=== PATIENT | female | born 1965 | race Caucasian/White ===

== ENCOUNTER 2024-08-05 09:59 | Outpatient (RCR) | payer OTHER, SELFPAY ==
--- NOTE | 2024-08-05 10:48 | PTOPEVAL1 ---
Assessment and note entered by Wilmer Scott Evaluation Information Assessment Status Evaluation Diagnosis bilateral biceps tendonitis ICD-10 Condition Codes (PT) M25.511,M25.512 Onset 11/08/23 Subjective Information Pt. reports that she was working at [employer] when she developed pain. She reports that pain is in both shoulder, however the right is worse than the left. She is right hand dominant. She describes pain in the front of the shoulder on both sides and pain is increased with reaching away from the body. She states that she cannot sleep due to pain, and cannot lay on the right or left shoulder. She states that she has trouble cleaning her home and doing light household duties due to pain in the shoulders. She reports that her goal is to reduce her shoulder pain. Reported Pain Level Pain Score 8,5: Self Report Assessment PT Clinical Summary Pt. is a 59 year old female who enters the clinic with bilateral shoulder pain. She presents with indication of bilateral shoulder impingement, worse on the right than the left. She currently presents with impaired postural awareness, impaired shoulder mobility, impaired shoulder strength and pain. Continued skilled PT is indicated in order to improve these areas to allow for improved comfort with IADL performance. Plan of Care Interventions Electrical Stimulation,Hot Pack/Cold Pack,Manual Therapy,Neuro Re-education,Patient/Caregiver Educati,Therapeutic Activities,Therapeutic Exercise PT Services Indicated Yes Treatment Frequency and 2x/week x 10 visits Duration These treatments will address the objective and functional deficits as defined above. The patient will be advanced safely and appropriately in order for the patient to progress towards his/her prior level of function. Additional exercises will be introduced and as well as a comprehensive home exercise program upon discharge, if needed, ?to ensure carryover of functional gains achieved in the clinic. This treatment plan has been reviewed and agreement upon by the patient.
--- NOTE | 2024-08-05 10:49 | OPREHPOC ---
Outpatient Therapy Plan of Care This is a Multidisciplinary Plan of Care that may contain components documented by all disciplines (PT, OT, and ST.) PT Problem 1 PT Problem #1 Knowledge Deficit PT Goal 1 Goal / Goal Update Pt. will be independent with a HEP addressing postural awareness Target Visit 2 PT Problem 2 PT Problem #2 Impaired Range of Motion PT Goal 1 Goal / Goal Update Pt. will demonstrate 160 degrees active bilateral shoulder flexion ROM against gravity Target Visit 10 PT Problem 3 PT Problem #3 Impaired Strength PT Goal 1 Goal / Goal Update Pt. will present with 5/5 bilateral u.e. strength in all muscle groups Pt. will be able to lift 10# object overhead with the right and left u.e. for 10 reps without pain increase. Target Visit 10 PT Problem 4 PT Problem #4 Impaired Functional Mobil PT Goal 1 Goal / Goal Update Pt. will be able to sleep through the night without pain disturbance Target Visit 10
--- NOTE | 2024-09-25 16:04 | OPREHPOC ---
Outpatient Therapy Plan of Care This is a Multidisciplinary Plan of Care that may contain components documented by all disciplines (PT, OT, and ST.) PT Problem 1 PT Problem #1 Knowledge Deficit PT Goal 1 Goal / Goal Update Pt. will be independent with a HEP addressing postural awareness Target Visit 2 Progress Met PT Problem 2 PT Problem #2 Impaired Range of Motion PT Goal 1 Goal / Goal Update Pt. will demonstrate 160 degrees active bilateral shoulder flexion ROM against gravity Target Visit 14 Progress Not Met PT Problem 3 PT Problem #3 Impaired Strength PT Goal 1 Goal / Goal Update Pt. will present with 5/5 bilateral u.e. strength in all muscle groups Pt. will be able to lift 10# object overhead with the right and left u.e. for 10 reps without pain increase. Target Visit 14 Progress Not Met PT Problem 4 PT Problem #4 Impaired Functional Mobility PT Goal 1 Goal / Goal Update Pt. will be able to sleep through the night without pain disturbance Target Visit 14 Progress Not Met
--- NOTE | 2024-09-25 16:04 | PTOPPROG ---
Assessment and note entered by JT File, PT Evaluation Information Assessment Status Re-evaluation Diagnosis bilateral biceps tendonitis ICD-10 Condition Codes (PT) Pain in right shoulder M25.511,Pain in left shoulder M25.512 Onset 11/08/23 Subjective Information patient reports she continues to have pain in the bilateral shoulders, and tightness with reaching overhead. she reports it is still difficult and tight to reach overhead and behind neck and back. Assessment PT Clinical Summary mrs. kowalski presents to skilled PT services for her 10th skilled PT visit. she presents with continued pain in the bilateral shoulders, weakness, and deficits in functional lifting/ reaching. she has met HEP goal as of this date, but has yet to meet any other goals for skilled PT . she was educated in the benefits of continued skilled PT with the progression of exercises, and to consider the addition of dry needling to the bilateral shoulders. Plan of Care Interventions Electrical Stimulation,Hot Pack/Cold Pack,Manual Therapy,Neuro Re-education,Patient/Caregiver Education,Therapeutic Activities,Therapeutic Exercise PT Services Indicated Yes Treatment Frequency and continue skilled PT 2x weekly for 4 more visits Duration These treatments will address the objective and functional deficits as defined above. The patient will be advanced safely and appropriately in order for the patient to progress towards his/her prior level of function. Additional exercises will be introduced and as well as a comprehensive home exercise program upon discharge, if needed, ?to ensure carryover of functional gains achieved in the clinic. This treatment plan has been reviewed and agreement upon by the patient.
--- NOTE | 2024-09-29 15:21 | PCPTNOTE ---
Cancelled session. Have not received authorization yet.
--- NOTE | 2024-10-03 15:20 | PCPTNOTE ---
Cancelled session. Pt reports she was not informed that authorization had been received.
--- NOTE | 2024-10-10 16:28 | OPREHPOC ---
Outpatient Therapy Plan of Care This is a Multidisciplinary Plan of Care that may contain components documented by all disciplines (PT, OT, and ST.) PT Problem 1 PT Problem #1 Knowledge Deficit PT Goal 1 Goal / Goal Update Pt. will be independent with a HEP addressing postural awareness Target Visit 2 Progress Met PT Problem 2 PT Problem #2 Impaired Range of Motion PT Goal 1 Goal / Goal Update Pt. will demonstrate 160 degrees active bilateral shoulder flexion ROM against gravity Target Visit 18 Progress Partially Met PT Goal 2 Goal / Goal Update progressing R, met for L PT Problem 3 PT Problem #3 Impaired Strength PT Goal 1 Goal / Goal Update Pt. will present with 5/5 bilateral u.e. strength in all muscle groups Pt. will be able to lift 10# object overhead with the right and left u.e. for 10 reps without pain increase. met for reps, not for pain. Target Visit 18 Progress Not Met PT Goal 2 Goal / Goal Update progressing PT Problem 4 PT Problem #4 Impaired Functional Mobility PT Goal 1 Goal / Goal Update Pt. will be able to sleep through the night without pain disturbance. most nights Target Visit 18 Progress Partially Met PT Goal 2 Goal / Goal Update progressing
--- NOTE | 2024-10-10 16:28 | PTOPREEVAL ---
Assessment and note entered by JT File, PT Evaluation Information Assessment Status Re-evaluation Diagnosis bilateral biceps tendonitis ICD-10 Condition Codes (PT) Pain in right shoulder M25.511,Pain in left shoulder M25.512 Onset 11/08/23 Subjective Information patient reports she is better, but we still have work today. she reports she still has issues with reaching behind her back, and pushing up from a chair. she reports she will get pain in the back of the R shoulder that is sharp at first and then throbs/hurts. she reports the L shoulder is not really an issue any more. she reports she only has soreness from time to time when she feels she has used it too much to overcome the issues with the R shoulder. patient reports she has to move her R arm slowly as it will lock up if she moves it too fast. Reported Pain Level Pain Score 2,5: Self Report Assessment PT Clinical Summary mrs. kowalski is a 59 yo woman who presents to her 14th skilled PT treatment. she presents with decreased pain and symptoms in the L shoulder, but still pain and limitations in the R shoulder. she is reduced in R shoulder active flexion, bilateral shoulder strength (worse on the R), and pain (worse on the R). she is also limited in movement speed due to locking of the R shoulder with quick movement. she would benefit from continued skilled PT as she has made improvements and progress towards all goals. Plan of Care Interventions Electrical Stimulation,Hot Pack/Cold Pack,Manual Therapy,Neuro Re-education,Patient/Caregiver Education,Therapeutic Activities,Therapeutic Exercise PT Services Indicated Yes Treatment Frequency and continue skilled PT 2x weekly for 4 more visits Duration These treatments will address the objective and functional deficits as defined above. The patient will be advanced safely and appropriately in order for the patient to progress towards his/her prior level of function. Additional exercises will be introduced and as well as a comprehensive home exercise program upon discharge, if needed, ?to ensure carryover of functional gains achieved in the clinic. This treatment plan has been reviewed and agreement upon by the patient.
--- NOTE | 2024-10-22 12:56 | OPREHPOC ---
Outpatient Therapy Plan of Care This is a Multidisciplinary Plan of Care that may contain components documented by all disciplines (PT, OT, and ST.) PT Problem 1 PT Problem #1 Knowledge Deficit PT Goal 1 Goal / Goal Update Pt. will be independent with a HEP addressing postural awareness Target Visit 2 Progress Met PT Problem 2 PT Problem #2 Impaired Range of Motion PT Goal 1 Goal / Goal Update Pt. will demonstrate 160 degrees active bilateral shoulder flexion ROM against gravity Target Visit 18 Progress Partially Met PT Goal 2 Goal / Goal Update . PT Problem 3 PT Problem #3 Impaired Strength PT Goal 1 Goal / Goal Update Pt. will present with 5/5 bilateral u.e. strength in all muscle groups Pt. will be able to lift 10# object overhead with the right and left u.e. for 10 reps without pain increase. met for reps, not for pain. Target Visit 18 Progress Not Met PT Goal 2 Goal / Goal Update . PT Problem 4 PT Problem #4 Impaired Functional Mobility PT Goal 1 Goal / Goal Update Pt. will be able to sleep through the night without pain disturbance. most nights Target Visit 18 Progress Partially Met PT Goal 2 Goal / Goal Update .
--- NOTE | 2024-10-22 12:56 | PTOPREEVAL ---
Assessment and note entered by JT File, PT Evaluation Information Assessment Status Re-evaluation Diagnosis bilateral biceps tendonitis ICD-10 Condition Codes (PT) Pain in right shoulder M25.511,Pain in left shoulder M25.512 Onset 11/08/23 Subjective Information patient reports shoulders are hurting more and locking up on her recently. she reports she is unaware of any activity or re-injury, and questions if the cold weather is causing her increased pain/symptoms. Reported Pain Level Pain Score 5,6: Self Report Assessment PT Clinical Summary mrs. kowalski presents to skilled PT for her 16th skilled PT visit today. she displays increased pain and locking sensation in the bilateral shoulders over the last week. she has had no recent re-injury. throughout her time in therapy, we have tried modalities to reduce pain, manual therapy to improve rom/reduce pain, exercise to improve rom and strength, and dry needling to reduce pain and improve tissue mobility. however, her pain and functional deficits continue to fluctuate up and down and has not been relieved. she would benefit from holding continued skilled PT at this time to follow up with MD for guidance into next steps, whether that be new meds/new injection/imaging. Plan of Care Interventions Electrical Stimulation,Hot Pack/Cold Pack,Manual Therapy,Neuro Re-education,Patient/Caregiver Education,Therapeutic Activities,Therapeutic Exercise PT Services Indicated Yes Treatment Frequency and hold PT at this time. follow up with MD and report Duration back. These treatments will address the objective and functional deficits as defined above. The patient will be advanced safely and appropriately in order for the patient to progress towards his/her prior level of function. Additional exercises will be introduced and as well as a comprehensive home exercise program upon discharge, if needed, ?to ensure carryover of functional gains achieved in the clinic. This treatment plan has been reviewed and agreement upon by the patient.
== END 2024-11-03 23:59 | disposition home or self-care (01) ==
LOC: CHSPT 09:59
PROVIDERS: Visit Provider Physician Assistant
DX: M75.21 Bicipital tendinitis, right shoulder (principal); M75.22 Bicipital tendinitis, left shoulder
CPT/HCPCS: 97014; 97110; 97140; 97161; G0283

== ENCOUNTER 2025-01-05 16:16 | Outpatient (RCR) | payer OTHER, SELFPAY ==
--- NOTE | 2025-01-05 18:04 | OPREHPOC ---
Outpatient Therapy Plan of Care This is a Multidisciplinary Plan of Care that may contain components documented by all disciplines (PT, OT, and ST.) PT Problem 1 PT Problem #1 Knowledge Deficit PT Goal 1 Goal / Goal Update Independent and compliant with HEP. Target Visit 2 PT Problem 2 PT Problem #2 Pain PT Goal 1 Goal / Goal Update Pt to report no more than 2/10 pain with activity. Target Visit 10 PT Problem 3 PT Problem #3 Impaired Strength PT Goal 1 Goal / Goal Update Pt to improve gross R UE strength to 5/5. Target Visit 10 PT Problem 4 PT Problem #4 Impaired Functional Mobility PT Goal 1 Goal / Goal Update Pt to be able to cut food for 15 minutes before onset of R shoulder pain. Pt to note 20% improvement in quick dash. Target Visit 10 PT Problem 5 PT Problem #5 Impaired Range of Motion PT Goal 1 Goal / Goal Update Pt to improve active R shoulder flexion to 160 degrees. Pt to improve active R shoulder abduction to 160 degrees. Pt to improve active functional IR to L3. Target Visit 10
--- NOTE | 2025-01-05 18:04 | PTOPEVAL1 ---
Assessment and note entered by Maia Ruelas, PT Evaluation Information Assessment Status Evaluation ICD-10 Condition Codes (PT) Pain in right shoulder M25.511,Pain in left shoulder M25.512 Other ICD-10 Condition Codes ( M75.81, M75.82, M75.21, M75.22 PT) Onset 11/08/23 Subjective Information Pt reports onset of bilateral shoulder pain in November of 2023. She states this pain was due to overuse at work lifting heavy boxes. She went to PT for this and is now back, reporting that her right shoulder is more painful than the left at this time. She states that she has now developed bicep tendinitis due to compensating for her shoulder. Her pain is sharp while moving/ exercising and then after she uses the arm it's a dull ache/throbbing. Pain is aggravated by lifting the arm up, reaching into her back pocket, cutting foods with a knife and scrubbing dishes. She currently has none to minimal pain in both shoulders at rest. She did receive a cortisone shot on Sunday. Reported Pain Level Pain Score 1,0: Self Report Assessment PT Clinical Summary Mrs. Hilliard is a 59 yo female who enters the clinic with bilateral shoulder pain (R>L) and bicipital tendonitis. She experiences a sharp pain with movement of the arm such as cutting food and reaching behind her back. She demonstrates weakness of the R shoulder compared to the L as well as impaired active ROM due to muscle weakness . She will benefit from skilled physical therapy intervention to improve on her deficits and return to prior level of function with less pain. Plan of Care Interventions Electrical Stimulation,Hot Pack/Cold Pack,Manual Therapy,Neuro Re-education,Patient/Caregiver Education,Therapeutic Activities,Therapeutic Exercise,Self-Care/Home Management PT Services Indicated Yes Treatment Frequency and 2x/week for 10 visits Duration These treatments will address the objective and functional deficits as defined above. The patient will be advanced safely and appropriately in order for the patient to progress towards his/her prior level of function. Additional exercises will be introduced and as well as a comprehensive home exercise program upon discharge, if needed, ?to ensure carryover of functional gains achieved in the clinic. This treatment plan has been reviewed and agreement upon by the patient.
--- NOTE | 2025-01-09 16:56 | PCPTNOTE ---
Patient called & cancelled scheduled appointment this date due to weather.
--- NOTE | 2025-02-04 11:44 | OPREHPOC ---
Outpatient Therapy Plan of Care This is a Multidisciplinary Plan of Care that may contain components documented by all disciplines (PT, OT, and ST.) PT Problem 1 PT Problem #1 Knowledge Deficit PT Goal 1 Goal / Goal Update Independent and compliant with HEP. Target Visit 2 Progress Met PT Problem 2 PT Problem #2 Pain PT Goal 1 Goal / Goal Update Pt to report no more than 2/10 pain with activity. Target Visit 10 Progress Not Met PT Problem 3 PT Problem #3 Impaired Strength PT Goal 1 Goal / Goal Update Pt to improve gross R UE strength to 5/5. Target Visit 10 PT Problem 4 PT Problem #4 Impaired Functional Mobility PT Goal 1 Goal / Goal Update Pt to be able to cut food for 15 minutes before onset of R shoulder pain. Pt to note 20% improvement in quick dash. Target Visit 10 Progress Not Met PT Problem 5 PT Problem #5 Impaired Range of Motion PT Goal 1 Goal / Goal Update Pt to improve active R shoulder flexion to 160 degrees. Pt to improve active R shoulder abduction to 160 degrees. Pt to improve active functional IR to L3. Target Visit 10 Progress Not Met
--- NOTE | 2025-02-04 11:45 | OPREHPOC ---
Outpatient Therapy Plan of Care This is a Multidisciplinary Plan of Care that may contain components documented by all disciplines (PT, OT, and ST.) PT Problem 1 PT Problem #1 Knowledge Deficit PT Goal 1 Goal / Goal Update Independent and compliant with HEP. Target Visit 2 Progress Met PT Problem 2 PT Problem #2 Pain PT Goal 1 Goal / Goal Update Pt to report no more than 2/10 pain with activity. Target Visit 14 Progress Not Met PT Problem 3 PT Problem #3 Impaired Strength PT Goal 1 Goal / Goal Update Pt to improve gross R UE strength to 5/5. Target Visit 14 PT Problem 4 PT Problem #4 Impaired Functional Mobility PT Goal 1 Goal / Goal Update Pt to be able to cut food for 15 minutes before onset of R shoulder pain. Pt to note 20% improvement in quick dash. Target Visit 14 Progress Not Met PT Problem 5 PT Problem #5 Impaired Range of Motion PT Goal 1 Goal / Goal Update Pt to improve active R shoulder flexion to 160 degrees. Pt to improve active R shoulder abduction to 160 degrees. Pt to improve active functional IR to L3. Target Visit 14 Progress Not Met
--- NOTE | 2025-02-04 11:45 | PTOPREEVAL ---
Assessment and note entered by JT File, PT Evaluation Information Assessment Status Re-evaluation ICD-10 Condition Codes (PT) Pain in right shoulder M25.511,Pain in left shoulder M25.512 Other ICD-10 Condition Codes ( M75.81, M75.82, M75.21, M75.22 PT) Onset 11/08/23 Subjective Information patient reports she continues to have pain in the bilateral shoulders, and reports this week it has been worse with the change in weather. however, she reports the R is worse than the L shoulders now. she reports feeling 5-6/10 pain in the R shoulder today. she reports she continues to have increased pain with movement. however, she reports the r shoulder will also throb at rest at times. she reports she feels she has improved mobility/ rom of the R shoulder since starting PT, especially with reaching up behind the back. Reported Pain Level Pain Score 6,1: Self Report Assessment PT Clinical Summary mrs. kowalski presents to skilled PT services for her 7th skilled PT visit. she presents with pain still increased in the R more than L shoulder. she also displays continued deficits in active R shoulder rom and strength, as well as, pain and deficits in functional activities such as cutting food. she would benefit from continued skilled PT to address her remaining objective/functional deficits and achieve all goals to return to her prior level functional activity performance/ quality of life. Plan of Care Interventions Electrical Stimulation,Hot Pack/Cold Pack,Manual Therapy,Neuro Re-education,Patient/Caregiver Education,Therapeutic Activities,Therapeutic Exercise,Self-Care/Home Management PT Services Indicated Yes Treatment Frequency and continue skilled PT 2x weekly for 7 more visits ( Duration 14 total) These treatments will address the objective and functional deficits as defined above. The patient will be advanced safely and appropriately in order for the patient to progress towards his/her prior level of function. Additional exercises will be introduced and as well as a comprehensive home exercise program upon discharge, if needed, ?to ensure carryover of functional gains achieved in the clinic. This treatment plan has been reviewed and agreement upon by the patient.
--- NOTE | 2025-03-13 13:55 | OPREHPOC ---
Outpatient Therapy Plan of Care This is a Multidisciplinary Plan of Care that may contain components documented by all disciplines (PT, OT, and ST.) PT Problem 1 PT Problem #1 Knowledge Deficit PT Goal 1 Goal / Goal Update Independent and compliant with HEP. Target Visit 2 Progress Met PT Problem 2 PT Problem #2 Pain PT Goal 1 Goal / Goal Update Pt to report no more than 2/10 pain with activity. met at rest Target Visit 14 Progress Partially Met PT Problem 3 PT Problem #3 Impaired Strength PT Goal 1 Goal / Goal Update Pt to improve gross R UE strength to 5/5. partially met Target Visit 14 Progress Partially Met PT Problem 4 PT Problem #4 Impaired Functional Mobility PT Goal 1 Goal / Goal Update Pt to be able to cut food for 15 minutes before onset of R shoulder pain. Pt to note 20% improvement in quick dash. Target Visit 14 Progress Met PT Problem 5 PT Problem #5 Impaired Range of Motion PT Goal 1 Goal / Goal Update Pt to improve active R shoulder flexion to 160 degrees. met Pt to improve active R shoulder abduction to 160 degrees. Pt to improve active functional IR to L3. met Target Visit 14 Progress Partially Met
--- NOTE | 2025-03-13 13:55 | PTOPDC ---
Assessment and note entered by JT File, PT Evaluation Information Assessment Status Discharge ICD-10 Condition Codes (PT) Pain in right shoulder M25.511,Pain in left shoulder M25.512 Other ICD-10 Condition Codes ( M75.81, M75.82, M75.21, M75.22 PT) Onset 11/08/23 Subjective Information patient reports she feels Good today. she reports she can still tell when poor weather is coming by the shoulder getting sore, but in general it is much less pain today, and has better mobility and strength since starting PT. Reported Pain Level Pain Score 3,0: Self Report Assessment PT Clinical Summary mr. kowalski presents to skilled PT for her 16th skilled PT visit today. she presents with improved R shoulder rom and strength, and has little pain any longer in the R shoulder. she has no pain in the L shoulder. she has met or made progress towards all goals in skilled PT. she continues to have some weakness in the R shoulder and was given and updated HEP to continue to work on this independently at home. Plan of Care PT Services Indicated Yes
== END 2025-03-13 14:00 | disposition home or self-care (01) ==
LOC: CHSPT 16:16
PROVIDERS: Visit Provider Physician Assistant
DX: M75.81 Other shoulder lesions, right shoulder (principal); M75.82 Other shoulder lesions, left shoulder; M75.22 Bicipital tendinitis, left shoulder; M75.21 Bicipital tendinitis, right shoulder
CPT/HCPCS: 97014; 97110; 97112; 97150; 97161; 97530; G0283